=== PATIENT | female | born 1955 | race Caucasian/White ===

== ENCOUNTER 2020-05-07 14:25 | Outpatient (CLI) | payer MEDICARE, SELFPAY ==
--- NOTE | ~2020-05-07 | MMUS_ITS ---
EXAMINATION: MM diagnostic shavonne BI w arline, US breast RT limited HISTORY: Right breast pain TECHNIQUE: Craniocaudal, mediolateral, and mediolateral oblique 3-D tomosynthesis images of the breas ts were performed and synthetic 2-D images were generated. CAD analysis was submitted and interpreted . High resolution limited right breast ultrasound was performed. COMPARISON: 10/30/2015, 10/19/2013, 05/01/2009 BREAST PARENCHYMAL COMPOSITION: The breasts are almost entirely fatty. FINDINGS: MAMMOGRAPHIC FINDINGS: There is no evidence of suspicious mass, calcification, or architectural distortion in either breast to suggest malignancy. There has been no suspicious interval change. No mammographic correlate is id entified for the patient's reported right breast pain. ULTRASOUND: There is no evidence of focal abnormal solid or cystic lesion in the vicinity of the patient's breast pain. IMPRESSION: 1. No specific mammographic or sonographic correlate is identified for the patient's right breast joby n. Further evaluation at this time should be based on clinical assessment. Continued follow-up physic al examination is recommended. 2. Recommend routine screening mammography in one year. BI-RADS Category 1: Negative Reviewed, dictated and finalized at location [facility]. IMPRESSION: 1. No specific mammographic or sonographic correlate is identified for the lori ent's right breast pain. Further evaluation at this time should be based on cli nical assessment. Continued follow-up physical examination is recommended. 2. Recommend routine screening mammography in one year. BI-RADS Category 1: Negative
== END 2020-05-07 14:26 | disposition home or self-care (01) ==
LOC: ANHIMG 14:32
DX: N64.4 Mastodynia (principal)
CPT/HCPCS: 76642; 77062; 77066; G0279

== ENCOUNTER 2021-05-05 12:09 | Emergency (ER) | payer MEDICARE, SELFPAY ==
--- NOTE | ~2021-05-05 | CT_ITS ---
EXAMINATION: CT abdomen pelvis w con DATE: 05/05/2021 16:00 INDICATION: Right lower quadrant and suprapubic and vaginal pain TECHNIQUE: Computed tomography (CT) of the abdomen and pelvis was performed with 100 cc Omnipaque 350 intravenous contrast. Automated exposure control and iterative reconstruction technique were employe d. Exam dose: 1446.00 mGy-cm total exam DLP. COMPARISON: October 02, 2015 Limited abdominal ultrasound examination demonstrated cirrhosis and gal lbladder sludge September 08, 2015 CT abdomen pelvis demonstrated nonspecific hepatosplenomegaly and nodularity of hepa tic surface suggesting cirrhosis; likely reactive epicardial, gastrohepatic, periportal and portal ca maira lymphadenopathy; mild diverticulosis. FINDINGS: The lung bases are clear of infiltrate or consolidation. Normal heart size. No pericardial or pleural effusion. Hepatic surface nodularity and splenomegaly consistent with cirrhosis. No space-occupying mass lesion of the liver or spleen, pancreas, adrenal glands or kidneys, with exce ption of a small probable upper pole right renal cyst. The gallbladder is present. No bile duct dilatation. No pancreatic duct dilatation or pancreatic calc ification. No urinary tract calculus or hydroureteronephrosis. There is atherosclerotic calcification but normal caliber of the abdominal aorta. Shotty gastrohepati c, portacaval, aortocaval and periaortic lymph nodes are again noted. No abdominal aortic aneurysm. The urinary bladder is unremarkable. Status post hysterectomy. Small sliding hiatal hernia. Normal appendix. Diverticulosis of the sigmoid colon; no CT evidence of diverticulitis. No bowel obstruction, bowel wa ll thickening, pneumatosis or intraperitoneal free air. Small fat-containing umbilical hernia. No suspicious osteolytic or osteoblastic lesions. IMPRESSION: Cirrhosis, splenomegaly Stable nonspecific gastrohepatic, portacaval, aortocaval, periaortic lymphadenopathy since 2016 Small sliding hiatal hernia Diverticulosis of the sigmoid colon; no CT evidence of diverticulitis Reviewed, dictated and finalized at [facility]. Reviewed, dictated and finalized at location [facility]. IMPRESSION: Cirrhosis, splenomegaly Stable nonspecific gastrohepatic, portacaval, aortocaval, periaortic lymphadeno emelina since 2016 Small sliding hiatal hernia Diverticulosis of the sigmoid colon; no CT evidence of diverticulitis
[2021-05-05 12:14] VITALS: BP 191/84; PULSE 105; RESP 20; TEMP 37.1; O2SAT 98
--- NOTE | 2021-05-05 13:44 | ED.FEMALEGU ---
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 Patient states that she injured her vagina approximately week ago using a vibrator. Patient reports pain with insertion and removal. She states she has been sore in the vaginal area since that time. She denies any other recent sexual activity. She denies dysuria or hematuria. No fever or chills. Patient does also reports some mild right lower quadrant pain. No masses or bulging. No history of hernia. She does have a history of hysterectomy. 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 Related Data Allergies Allergy/AdvReac Type Severity Reaction Status Date / Time tramadol Allergy Intermediate nightmares Verified 10/08/16 13:51 diphenhydramine Allergy Unknown Verified 02/03/17 13:48 triamterene Allergy Unknown nausea Verified 10/08/16 13:14 Review of Systems Review of Systems: CONSTITUTIONAL: Denies fever, chills, or sweats. EYES: Denies visual changes, redness, or discharge. ENT: Denies rhinorrhea, congestion, sore throat, or otalgia. CARDIOVASCULAR: Denies chest pain, palpitations, or edema. RESPIRATORY: Denies cough or dyspnea. GASTROINTESTINAL: Reports RLQ abd pain, no nausea or vomiting GENITOURINARY: Denies dysuria or hematuria. Reports vaginal discharge. SKIN: Denies rash or itching. MUSCULOSKELETAL: Denies back pain, joint pain, or myalgia. NEUROLOGIC: Denies headache, numbness, or weakness. [facility] Family History Family History (Updated 06/09/16 @ 13:11 by DOCTOR UNKNOWN) Father Family history of diabetes mellitus in first degree relative Other Diabetes mellitus Family history of autism Family history of cardiovascular disease Family history of coronary artery disease Social History Social History Smoking status: Never smoker Alcohol intake: never Exam Narrative: GENERAL: Awake, alert, conversant HEAD: Normocephalic, atraumatic. EYES: PERRLA and EOMI. ENT: Nares clear, no rhinorrhea or epistaxis. Mucous membranes moist. NECK: Supple. CHEST: No respiratory distress, breathing even and non labored HEART: Regular rate, sinus rhythm ABDOMEN:Non distended, non tender : Labia majora and minora normal without lesions. Vagina without blood. No ecchymoses. White discharge present EXTREMITIES: Normal range of motion. No edema. SKIN: Warm, dry, no rash. NEURO:No focal deficits. Alert and oriented x3 Course Vital Signs Vital signs: Vital Signs Temperature 37.1 C 05/05/21 12:14 Pulse Rate 105 H 05/05/21 12:14 Respiratory Rate 20 05/05/21 12:14 Blood Pressure 191/84 H 05/05/21 12:14 Pulse Oximetry 98 05/05/21 12:14 Temperature 37.1 C 05/05/21 12:14 Pulse Rate 109 H 05/05/21 13:47 Respiratory Rate 16 05/05/21 13:47 Blood Pressure 184/98 H 05/05/21 17:19 Pulse Oximetry 99 05/05/21 13:47 MDM - Female Genitourinary MDM Narrative Medical decision making narrative: Patient presenting for evaluation of vaginal pain and discharge after using a vibrator. Patient is hypertensive at the time of assessment. No chest pain or shortness of breath. Exam shows evidence of vaginal candidiasis without laceration, ecchymosis or evidence of trauma. There is no bleeding. Patient with mild right lower quadrant tenderness on exam. Labs and imaging studies are reassuring. No evidence of acute or blunt traumatic injury. No urinary tract infection. Patient repeat blood pressure was checked by manual blood pressure and it was 184/80. Patient is due to take her evening medication and I counseled her on the i
[2021-05-05 13:47] VITALS: BP 217/95; PULSE 109; RESP 16; O2SAT 99
[2021-05-05 15:02] LABS: Basophils Percent Auto 0.4 % (0.2-1.2); Eosinophils Absolute Auto 0.1 K/mm3 (0-0.3); Eosinophils Percent Auto 2.4 % (0-4.4); Hematocrit 38.9 % (37.0-47.0); Hemoglobin 12.7 g/dL (12.0-15.0); Immature Granulocyte Absolute 0.01 K/mm3 (0.00-0.031); Immature Granulocyte Percent A 0.2 % (0-0.5); Immature Platelet Fraction Pct 5.7 % (0.9-11.2); Lymphocytes Absolute Auto 1.39 K/mm3 (0.9-3.2); Lymphocytes Percent Auto 30.3 % (18.3-44.2); Mean Corpuscular HGB Conc 32.6 g/dl (32-36); Mean Corpuscular Volume 91.7 fl (80-100); Mean Platelet Volume 11.1 fl (7.4-10.4); Monocytes Absolute Auto 0.3 K/mm3 (0.1-0.6); Neutrophils Absolute Auto 2.7 K/mm3 (1.3-6.7); Neutrophils Percent Auto 59.7 % (45.5-73.1); Platelet Count Result 107 k/mm3 (150-375); Red Blood Count 4.24 M/mm3 (4.2-5.4); White Blood Count 4.6 K/mm3 (4.5-10.0)
[2021-05-05 15:03] LABS: Add Urine Microscopic? NO; Appearance Urine Clear (Clear); Bilirubin Urine Negative (Negative); Blood Urine Negative (Negative); Color Urine Straw (Yellow); Glucose Urine UA Negative (Negative); Ketones Urine Negative (Negative); Leukocyte Esterase Ur Negative LEU/UL (Negative); Nitrate Urine Negative (Negative); Protein Urine Negative (Negative); Specific Grav Ur 1.008 (1.001-1.035); Urobilinogen Urine Negative mg/dL (<2.0)
[2021-05-05] MEDS: oxyCODONE/ACETAMINOPHEN (*CRX) 5-325 MG TABLET 1 TABLET PO (15:21)
[2021-05-05 15:30] LABS: Alanine Aminotransferase 29 U/L (4-35); Albumin Level 4.3 g/dL (3.5-5.1); Alkaline Phosphatase 102 U/L (38-126); Anion Gap 9 mmol/L (8-16); Aspartate Amino Transferase 36 U/L (14-36); Bilirubin,Total 0.4 mg/dL (0.2-1.3); Blood Urea Nitrogen 11 mg/dL (7-17); Calcium 9.3 mg/dL (8.4-10.2); Carbon Dioxide 27 mmol/L (22-30); Chloride 103 mmol/L (98-107); Estimated CRCL calculation 77 ml/min; Estimated Glomerular Filt Rate > 60; Glucose 148 mg/dL (65-110); Lipase 156 U/L (23-300); Potassium 3.7 mmol/L (3.4-5.0); Sodium 139 mmol/L (137-145)
[2021-05-05 17:19] VITALS: BP 184/98
== END 2021-05-05 18:19 | disposition home or self-care (01) ==
PROVIDERS: Emergency Provider Emergency Medicine
DX: B37.3 Candidiasis of vulva and vagina (principal); R10.2 Pelvic and perineal pain; E78.5 Hyperlipidemia, unspecified; I10 Essential (primary) hypertension; E03.9 Hypothyroidism, unspecified; E11.9 Type 2 diabetes mellitus without complications
CPT/HCPCS: 36415; 74177; 80053; 81003; 83690; 85025; 85055; 99284; A9270; Q9967

== ENCOUNTER 2021-05-11 01:26 | Emergency (ER) | payer MEDICARE, SELFPAY ==
[2021-05-11 01:30] VITALS: BP 219/112; PULSE 115; RESP 18; TEMP 36.4; O2SAT 99
[2021-05-11] MEDS: ACETAMINOPHEN 500 MG TABLET 1000 MG PO (02:10)
[2021-05-11 02:19] LABS: Glucose Point of Care 193 mg/dl (65-105)
[2021-05-11 02:21] VITALS: BP 227/108; PULSE 100; RESP 20; O2SAT 98
[2021-05-11] MEDS: lisinopriL 20 MG TABLET 40 MG PO (02:40)
--- NOTE | 2021-05-11 02:40 | ED.LOWEXIN ---
HPI - Extremity Injury (Lower) General Chief Complaint: Extremity Injury, Lower Stated Complaint: diabetic neuropathy pain Time Seen by Provider: 05/11/21 01:48 Source: RN notes reviewed History of Present Illness HPI Narrative: Patient presents to emergency department from home for bilateral leg pain. Patient states that she has a history of diabetic neuropathy that was diagnosed 30 years ago she states that her pain is progressively been worse in her bilateral legs she states she is laying down to go to sleep tonight the pain became too severe and she came to the emergency department for further evaluation she denies any new trauma or injury to the leg states she has been taking aspirin at home for the pain states she drove herself to the emergency department she denies any fevers or chills chest pain shortness of breath or any other symptoms Related Data Home Medications Medication Instructions Recorded Confirmed benazepril 40 mg PO DAILY 05/11/21 lithium carbonate 300 mg PO DAILY 05/11/21 Allergies Allergy/AdvReac Type Severity Reaction Status Date / Time diphenhydramine Allergy Unknown Unknown Verified 05/11/21 02:46 triamterene Allergy Unknown nausea Verified 05/11/21 02:46 tramadol AdvReac Intermediate nightmares Verified 05/11/21 02:47 Review of Systems Review of Systems: Gen.: Denies fevers or chills ENT: Denies congestion Respiratory: Denies shortness of breath or cough CV: Denies chest pain or palpitations GI: Denies abdominal pain nausea, emesis Musculoskeletal: See HPI Neuro: Denies numbness, tingling, weakness or focal weakness Skin: Denies rash Reports diabetes mellitus Except as documented, all other systems reviewed and negative [facility] Past Medical History Medical History (Updated 05/11/21 @ 03:26 by Jian Peraza DO) Diabetes Family History Family History (Updated 06/09/16 @ 13:11 by DOCTOR UNKNOWN) Father Family history of diabetes mellitus in first degree relative Other Diabetes mellitus Family history of autism Family history of cardiovascular disease Family history of coronary artery disease Social History Social History Smoking status: Never smoker Alcohol intake: never Exam Narrative: APPEARANCE: No acute distress, nontoxic, resting in bed EYES: EOMI HEENT: Normocephalic, atraumatic, OMM RESPIRATORY: No respiratory distress Clear to auscultation bilaterally with no rhonchi wheezing or rales. CARDIOVASCULAR: Regular rate and rhythm without murmurs rubs or gallops. ABDOMINAL: Soft, nontender, nondistended, no rebound or guarding MUSCULOSKELETAl: Moves all extremities. No clubbing, cyanosis 2+ edema the bilateral lower extremities bilateral dorsalis pedis pulse 2+ peripheral neuropathy and stocking gradient fashion up to the midshin NEURO: Awake and alert. Following commands, speech normal, no focal deficits SKIN:: Warm, dry. No rashes lesions or abrasions PSYCHIATRIC: Normal affect/mood, Course Course Emergency Course: Patient able to ambulate in the emergency department with no difficulty. Upon exam patient walked to the bathroom with no signs of pain or discomfort did discuss with the patient her blood pressure she states that she normally takes her benazepril in the morning at breakfast which is usually early in the morning with blood pressures being up I will give her morning medication Discussed with patient results of workup and diagnosis. Discussed need for follow-up with primary care, proper use of medication, and reasons to return to the emergency department. Patient understands and agrees to current treatment plan Vital Signs Vital signs: Vital Signs Temperature 97.6 F 05/11/21 01:30 Pulse Rate 115 H 05/11/21 01:30 Respiratory Rate 18 05/11/21 01:30 Blood Pressure 219/112 H 05/11/21 01:30 Pulse Oximetry 99 05/11/21 01:30 Temperature 97.6 F 05/11/21 01:30 Pulse Rate 108 H
[2021-05-11 03:18] VITALS: BP 189/106; PULSE 108; RESP 15; O2SAT 99
== END 2021-05-11 03:44 | disposition home or self-care (01) ==
PROVIDERS: Emergency Provider Emergency Medicine
DX: E11.42 Type 2 diabetes mellitus with diabetic polyneuropathy (principal)
CPT/HCPCS: 82948; 99283; A9270

== ENCOUNTER 2022-08-31 07:54 | Outpatient (CLI) | payer MEDICARE, SELFPAY ==
--- NOTE | ~2022-08-31 | US_ITS ---
Limited Abdominal Sonogram: Real-time sonographic imaging of the right upper quadrant was performed. Clinical History: Abdominal pain Findings: The liver appears mildly heterogeneous, with no evidence of mass lesion or bile duct dilat ation. Main portal vein demonstrates normal direction of flow. The gallbladder is well distended, and appears normal with no evidence of gallstone or wall thickening. The common bile duct measures 5 mm. The visualized pancreas, aorta, and IVC are unremarkable. Impression: Probable fatty infiltration of liver. Reviewed, dictated and finalized at location [facility]. 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
== END 2022-08-31 07:55 | disposition home or self-care (01) ==
PROVIDERS: PCP Internal Medicine; Visit Provider Internal Medicine
DX: R10.11 Right upper quadrant pain (principal)
CPT/HCPCS: 76705